=== PATIENT | male | born 1985 | race Caucasian/White ===

== ENCOUNTER 2016-02-23 23:26 | Emergency (ER) | payer OTHER ==
[~2016-02-23] VITALS: Ht 172.7 cm; Wt 78.0 kg
[~2016-02-23 23:26] MED LIST: ALPR0.5T PO; ALPR0.5T3; BSP5T PO; HYDR-1231 PO; HYDR-3720 PO; HYDR-757 PO; ONDA8TAB13 PO; PNT40TEC PO; PREDNISON; SULF-222 PO; THYROID MED
[2016-02-23] MEDS ORDERED: NAPR500T3 (23:44)
[2016-02-23] MEDS ORDERED: HYDR-3812 (23:44)
[2016-02-23] MEDS ORDERED: LISD40CA3 (23:44)
[2016-02-23] MEDS ORDERED: LEVO88TA54 (23:44)
[2016-02-24] MEDS ORDERED: fentaNYL INJECTION 100 MCG/2 ML AMP IVP PRN
[2016-02-24] MEDS ORDERED: LIDOCAINE/EPI 1%-1:100,000 (XYLOCAINE) 20ML INJ ONE
[2016-02-24 00:13] LABS: BASOPHILS # (AUTO) 0.1 10^3/uL (0.0-0.1); BASOPHILS % (AUTO) 1 % (0-10); EOSINOPHILS # (AUTO) 0.6 10^3/uL (0.0-0.3); EOSINOPHILS % (AUTO) 5 % (0-10); LYMPHOCYTES # (AUTO) 3.1 X 10^3 (1.0-4.0); LYMPHOCYTES % (AUTO) 27 % (12-44); MEAN CORPUSCULAR HEMOGLOBIN 33 PG (25-34); MEAN CORPUSCULAR HGB CONC 34 G/DL (32-36); MEAN CORPUSCULAR VOLUME 97 FL (80-99); MEAN PLATELET VOLUME 10.6 FL (7.4-10.4); MONOCYTES # (AUTO) 0.9 X 10^3 (0.0-1.0); MONOCYTES % (AUTO) 8 % (0-12); NEUTROPHILS # (AUTO) 6.7 X 10^3 (1.8-7.8); NEUTROPHILS % (AUTO) 59 % (42-75); PLATELET COUNT 345 10^3/uL (130-400); RED BLOOD COUNT 4.06 10^6/uL (4.35-5.85); RED CELL DISTRIBUTION WIDTH 12.4 % (10.0-14.5); WHITE BLOOD COUNT 11.3 10^3/uL (4.3-11.0)
[2016-02-24 00:17] LABS: PROTHROMBIN TIME PATIENT 12.8 SEC (12.2-14.7)
[2016-02-24 00:30] LABS: ALANINE AMINOTRANSFERASE 127 U/L (0-55); ALBUMIN 4.3 G/DL (3.2-4.5); ALCOHOL 245 MG/DL (<10); ANION GAP 11 MMOL/L (5-14); ASPARTATE AMINO TRANSFERASE 70 U/L (5-34); BILIRUBIN,TOTAL 0.4 MG/DL (0.1-1.0); BLOOD UREA NITROGEN 8 MG/DL (7-18); BUN/CREATININE RATIO 7; CARBON DIOXIDE 24 MMOL/L (21-32); CHLORIDE 105 MMOL/L (98-107); CREATININE SERUM 1.11 MG/DL (0.60-1.30); GFR ESTIMATED > 60; GLUCOSE 113 MG/DL (70-105); POTASSIUM 4.4 MMOL/L (3.6-5.0); SODIUM 140 MMOL/L (135-145); TOTAL PROTEIN 7.5 G/DL (6.4-8.2)
[2016-02-24] MEDS: TETANUS,DIPTH,PERTUSS P/F (BOOSTRIX) 0.5 ML VIAL IM ONE ×2 (00:33→00:37)
[2016-02-24] MEDS ORDERED: ceFAZolin 2 GM IV (SDC ONLY) 50 ML IV ONE (00:45)
[2016-02-24] MEDS ORDERED: TRIM/SULFAMETH 160/800 (SEPTRA DS) TAB PO ONE (00:45)
[2016-02-24] MEDS ORDERED: RX-TRAMADOL 50 MG (ULTRAM) TAB PPK#4 PO STA (01:19)
--- NOTE | 2016-02-24 01:30 | ED Fall/Injury ---
General Chief Complaint: Laceration Stated Complaint: R LEG AND R HAND INJ Nursing Triage Note: c/o R hand laceration after falling on glass bird feeder Source: patient, family Exam Limitations: intoxication (JOSE ALEJANDRO PETERSEN MD) History of Present Illness Time seen by provider: 23:35 Initial Comments Patient reports having a fall in which she grabbed onto a bird feeder with glass pains that broke and lacerated his right hand on the palmar surface. Patient has chronic right knee pain which he exacerbated with the fall. He reports he is scheduled to have surgery on the right knee in the near future. He also complains of right ankle pain. The laceration on the right palm is fairly deep and has arterial bleeding. Pressure is required to control the bleeding. Patient is not certain of last tetanus immunization. Patient denies any head or neck injury. No loss of consciousness. He is alert and oriented but intoxicated. (JOSE ALEJANDRO PETERSEN MD) Allergies and Home Medications Allergies Coded Allergies: No Known Drug Allergies (Unverified , 01/31/11) Home Medications Hydrocodone/Acetaminophen 1 Each Tablet #75 (Reported) Levothyroxine Sodium 88 Mcg Tablet #30 (Reported) Lisdexamfetamine Dimesylate 40 Mg Capsule #30 (Reported) Naproxen 500 Mg Tablet #60 (Reported) Sulfamethoxazole/Trimethoprim 1 Each Tablet #14 1 EACH PO BID Prescribed by: JOSE ALEJANDRO HERNANDEZ on 02/24/16 0133 Constitutional: see HPI Eyes: No Symptoms Reported Ears, Nose, Mouth, Throat: no symptoms reported Respiratory: no symptoms reported Cardiovascular: no symptoms reported Gastrointestinal: no symptoms reported Genitourinary: no symptoms reported Musculoskeletal: see HPI Skin: see HPI Psychiatric/Neurological: See HPI (JOSE ALEJANDRO PETERSEN MD) Past Nmaqngq-Iemjoe-Ryvbwz Hx Patient Social History Alcohol Use: Occasionally Uses Recreational Drug Use: No (ALCOHOL, NO RECENT HX OF DRUG ABUSE) Smoking Status: Current Everyday Smoker Type Used: Cigarettes Recent Foreign Travel: No Contact w/Someone Who Travel: No Recent Infectious Disease Expo: No Recent Hopitalizations: No Physical Abuse Screen: No Sexual Abuse: No (JOSE ALEJANDRO PETERSEN MD) Seasonal Allergies Seasonal Allergies: No (JOSE ALEJANDRO PETERSEN MD) Surgeries HX Surgeries: No (JOSE ALEJANDRO PETERSEN MD) Respiratory Hx Respiratory Disorders: No (JOSE ALEJANDRO PETERSEN MD) Cardiovascular Hx Cardiac Disorders: No (JOSE ALEJANDRO PETERSEN MD) Neurological Hx Neurological Disorders: No (JOSE ALEJANDRO PETERSEN MD) Reproductive System Hx Reproductive Disorders: No (JOSE ALEJANDRO PETERSEN MD) Genitourinary Hx Genitourinary Disorders: No (JOSE ALEJANDRO PETERSEN MD) Gastrointestinal Hx Gastrointestinal Disorders: No (JOSE ALEJANDRO PETERSEN MD) Musculoskeletal Hx Musculoskeletal Disorders: Yes (chronic knee pain from injury 2 yrs ago) (JSOE ALEJANDRO PETERSEN MD) Endocrine Hx Endocrine Disorders: Yes Endocrine Disorders: Hypothyroidsim (JOSE ALEJANDRO PETERSEN MD) HEENT HX ENT Disorders: No (JOSE ALEJANDRO PETERSEN MD) Cancer Hx Cancer: No (JOSE ALEJANDRO PETERSEN MD) Psychosocial Hx Psychiatric Problems: Yes Behavioral Health Disorders: Anxiety (JOSE ALEJANDRO PETERSEN MD) Integumentary HX Skin/Integumentary Disorder: No (JOSE ALEJANDRO PETERSEN MD) Blood Transfusions Hx Blood Disorders: No (JOSE ALEJANDRO PETERSEN MD) Family Medical History Significant Family History: No Pertinent Family Hx (JOSE ALEJANDRO PETERSEN MD) Physical Exam Vital Signs Vital Sign - Last 12Hours 02/23/16 02/24/16 23:34 01:39 Temp 98.2 Pulse 84 Resp 18 B/P 157/104 Pulse Ox 89 O2 Delivery Room Air (DORA ROMERO) Vital Signs Capillary Refill : Less Than 3 Seconds (JOSE ALEJANDRO PETERSEN MD) General Appearance: WD/WN no apparent distress HEENT: PERRL/EOMI normal ENT inspection Neck: normal inspection Cardiovascular: regular rate, rhythm no edema no murmur Respiratory: lungs clear normal breath sounds no respiratory distress no accessory muscle use Gastrointestinal: non tender soft Back: normal inspection Extremities: other (3 cm flap laceration to the right palm. 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 no motor/sensory deficits alert normal mood/affect oriented x 3 other Skin: normal color (intoxicated) warm/dry other (see above) (JOSE ALEJANDRO PETERSEN MD) Jean-Claude Coma Score Best Eye Response: (4) Open Spontaneously Best Verbal Response: (5) Oriented Best Motor Response: (6) Obeys Commands [place] Total: 15 (JOSE ALEJANDRO PETERSEN MD) Laceration Repair : Wound Location: Upper Extremities (rt hand) Wound Length (cm): 3 Wound's Depth, Shape: flap, sub Q Wound Explored: contaminated Irrigated w/ Saline (ccs): 500 Betadine Prep?: No Anesthesia: Lidocaine w/ Epi Volume Anesthetic (ccs): 3 Suture: Ethlion (3-0 ethilon used to reapproximate skin edges.), Vicryl (3- 0 vicryl used to obtain hemostasis.) Number of Sutures: 4 Layer Closure?: 1 Number Deep Layer Sutures: 1 Sterile Dressing Applied?: Yes Progress compression held on the wound and surgicel placed in the bed of the wound to assist with obtaining hemostasis. blood loss 50 cc. Patient tolerated the procedure well. (DORA ROMERO) Progress/Results/Core Measures Results/Orders Lab Results Laboratory Tests Test 02/23/16 23:55 Range/Units Activated Partial Thromboplast Time 32 24-35 SEC Alanine Aminotransferase (ALT/SGPT) 127 H 0-55 U/L Albumin 4.3 3.2-4.5 G/DL Alkaline Phosphatase 65 40-136 U/L Anion Gap 11 5-14 MMOL/L Aspartate Amino Transf (AST/SGOT) 70 H 5-34 U/L BUN/Creatinine Ratio 7 Basophils # (Auto) 0.1 0.0-0.1 10^3/uL Basophils (%) (Auto) 1 0-10 % Blood Urea Nitrogen 8 7-18 MG/DL Calcium Level 9.0 8.5-10.1 MG/DL Carbon Dioxide Level 24 21-32 MMOL/L Chloride Level 105 98-107 MMOL/L Creatinine 1.11 0.60-1.30 MG/DL Eosinophils # (Auto) 0.6 H 0.0-0.3 10^3/uL Eosinophils (%) (Auto) 5 0-10 % Estimat Glomerular Filtration Rate > 60 Glucose Level 113 H 70-105 MG/DL Hematocrit 39 L 40-54 % Hemoglobin 13.3 13.3-17.7 G/DL INR Comment 1.0 0.8-1.4 Lymphocytes # (Auto) 3.1 1.0-4.0 X 10^3 Lymphocytes (%) (Auto) 27 12-44 % Mean Corpuscular Hemoglobin 33 25-34 PG Mean Corpuscular Hemoglobin Concent 34 32-36 G/DL Mean Corpuscular Volume 97 80-99 FL Mean Platelet Volume 10.6 H 7.4-10.4 FL Monocytes # (Auto) 0.9 0.0-1.0 X 10^3 Monocytes (%) (Auto) 8 0-12 % Neutrophils # (Auto) 6.7 1.8-7.8 X 10^3 Neutrophils (%) (Auto) 59 42-75 % Platelet Count 345 130-400 10^3/uL Potassium Level 4.4 3.6-5.0 MMOL/L Prothrombin Time 12.8 12.2-14.7 SEC Red Blood Count 4.06 L 4.35-5.85 10^6/uL Red Cell Distribution Width 12.4 10.0-14.5 % Serum Alcohol 245 H <10 MG/DL Sodium Level 140 135-145 MMOL/L Total Bilirubin 0.4 0.1-1.0 MG/DL Total Protein 7.5 6.4-8.2 G/DL White Blood Count 11.3 H 4.3-11.0 10^3/uL (DORA ROMERO) My Orders Orders-DORA ROMERO Lidocaine/Epi 1% 1:100,000 (Xylocaine /E (02/24/16 00:00) (DORA ROMERO) Medications Given in ED Current Medications Medications Dose Ordered Sig/José Route Start Time Stop Time Status Last Admin Dose Admin Cefazolin Sodium/ Dextrose 50 ml @ 100 mls/hr ONCE ONCE IV 02/24/16 00:45 02/24/16 01:14 DC 02/24/16 01:00 100 MLS/HR Diphtheria/ Tetanus/Acell Pertussis 0.5 ml 0.5 ml ONCE ONCE IM 02/24/16 00:15 02/24/16 00:16 DC 02/24/16 00:37 0.5 ML Fentanyl Citrate 50 mcg ONCE PRN IVP 02/24/16 00:00 02/24/16 01:40 DC 02/23/16 23:58 50 MCG Lidocaine/ Epinephrine 20 ml ONCE ONCE INJ 02/24/16 00:00 02/24/16 00:01 DC 02/23/16 23:58 7 ML Trimethoprim/ Sulfamethoxazole 1 ea ONCE ONCE PO 02/24/16 00:45 02/24/16 00:46 DC 02/24/16 01:00 1 EA (DORA ROMERO) Vital Signs/I&O Vital Sign - Last 12Hours 02/23/16 02/24/16 23:34 01:39 Temp 98.2 98.2 Pulse 84 Resp 18 B/P 157/104 Pulse Ox 89 98 O2 Delivery Room Air (DORA ROMERO) Blood Pressure Mean: 121 Progress Note : Progress Note Patient was given fentanyl for pain. Boostrix tetanus booster was administered. Repair of the flap laceration was performed by Dora Romero with my assistance. We had difficulty controlling the bleeding. One internal suture was required to control bleeding. Patient was anesthetized with lidocaine with epinephrine and a pressure dressing applied. Bleeding eventually did stop and wound was repaired by Dora Romero. Because of the depth and extensiveness of wound, Ancef was administered for infection prophylaxis. This was followed by Bactrim for MRSA prophylaxis. A take-home packet of tramadol was provided for pain control. (JOSE ALEJANDRO PETERSEN MD) Diagnostic Imaging Diagonstic Imaging: Xray Plain Films/CT/US/NM/MRI: ankle Comments X-rays of the right ankle viewed by me. Report not yet available. No acute abnormalities appreciated. Diagonstic Imaging: Xray Plain Films/CT/US/NM/MRI: knee Comments X-rays of the right knee viewed by me. Report not available. No acute abnormalities appreciated. Diagonstic Imaging: Xray Plain Films/CT/US/NM/MRI: hand Comments X-rays of the right hand viewed by me. Report not yet available. No acute bony injuries or foreign bodies appreciated. (JOSE ALEJANDRO PETERSEN MD) Departure Impression Impression: Primary Impression: Laceration of hand, right, complicated Qualified Code: S61.411A - Laceration without foreign body of right hand, initial encounter Additional Impressions: exacerbation of chronic pain Alcohol intoxication Qualified Code: F10.129 - Alcohol abuse with intoxication, unspecified Disposition: 01 HOME, SELF-CARE Condition: Improved Departure-Patient Inst. Decision time for Depature: 01:00 (JOSE ALEJANDRO PETERSEN MD) Referrals: [facility] (PCP/Family) Primary Care Physician Patient Instructions: Laceration Repair With Stitches (DC) Add. Discharge Instructions: Return to care if you have worsening symptoms or you develop signs of infection such as increasing redness, puslike drainage, fever, etc. Leave the dressing in place for 48 hours. Then you may change the dressing out with clean gauze. Have your sutures removed in 8-10 days. Keep the wound clean and dry. After the current dressing is removed in 48 hours, you may wash your hands and shower as usual but avoid submerging until sutures are removed. Take care to avoid disrupting the sutures. Please avoid drinking alcohol in the future as this will make your walking unsteady given your history of chronic knee problems. Alcohol cessation is important for preventing further injury. Follow-up with your primary care provider early next week. You may take the Ultram dispensed in the emergency room every 6 hours as needed for pain. You may add Tylenol up to 1000 mg every 6 hours as needed for additional pain relief. After 24 hours, you may add ibuprofen up to 800 mg every 8 hours as needed. Complete your antibiotics as prescribed. All discharge instructions reviewed with patient and/or family. Voiced understanding. Scripts Sulfamethoxazole/Trimethoprim (Bactrim Ds Tablet)1 Each Tablet1 Each PO BID #14 TAB Prov:JOSE ALEJANDRO PETERSEN MD 02/24/16 JOSE ALEJANDRO PETERSEN MD Feb 24, 2016 01:30 DORA ROMERO Feb 24, 2016 01:46
[2016-02-24] MEDS ORDERED: SULF1TAB35 PO (01:33)
[2016-02-24 01:39] VITALS: BP 148/98
--- NOTE | 2016-02-24 06:59 | Diagnostic Imaging Report ---
Clinical indication: Patient complains of pain to right knee and ankle after falling into glass birdfeeder. Exam: X-ray of the right ankle, 3 views. Comparison: X-ray of the right foot dated 09/01/2014. Findings: There is no evidence of acute fracture or dislocation. There is no significant bone or joint abnormality. Ankle mortise and syndesmotic joints unremarkable. Impression: Unremarkable x-ray of the right ankle. Dictated by: Dictated on workstation # [id number]
--- NOTE | 2016-02-24 07:35 | Diagnostic Imaging Report ---
CLINICAL INDICATION: Patient fell into glass bird feeder, laceration anterior side of the right hand and knee. EXAM: X-ray of the right knee, 3 views. COMPARISON: X-ray of the right knee dated 09/01/2014. FINDINGS: There is no evidence of acute fracture or dislocation. There is soft tissue swelling involving the anterior aspect of the knee. Stable appearing bony deformity of the upper fibular diaphysis which may be related to old healed fracture changes. IMPRESSION: There is no evidence of acute fracture or dislocation. There is soft tissue swelling anterior to the right knee. Dictated by: Dictated on workstation # [id number]
--- NOTE | 2016-02-24 07:49 | Diagnostic Imaging Report ---
Clinical indication: Patient fell in a Glass bird feeder. Patient has laceration to anterior side of the right hand. Exam: X-ray of the right hand, 3 views. Comparison: None. Findings: There is no acute fracture or dislocation. There is slight flexion in position of the fifth digit noted. There is no evidence of radiodense foreign objects seen on this exam. There is no significant abnormality seen. Dressing is seen overlying the right hand. Impression: There is slight flexion position of the fifth digit noted. Otherwise, unremarkable x-ray of the right hand with no evidence of radiodense foreign object. Dictated by: Dictated on workstation # [id number]
== END 2016-02-24 01:40 | disposition home or self-care (01) ==
LOC: EDUNIT# 23:26 → ER 23:30
DX: S61.421A Laceration with foreign body of right hand, initial encounter (principal); Z23 Encounter for immunization; F10.129 Alcohol abuse with intoxication, unspecified; Y90.8 Blood alcohol level of 240 mg/100 ml or more; M25.561 Pain in right knee; G89.29 Other chronic pain; F17.210 Nicotine dependence, cigarettes, uncomplicated; W18.02XA Striking against glass with subsequent fall, initial encounter; Y99.8 Other external cause status
CPT/HCPCS: 12042; 36415; 73130; 73562; 73610; 80053; 80320; 85025; 85610; 85730; 90471; 90715; 96365; 96375

== ENCOUNTER 2016-05-21 17:30 | Emergency (ER) | payer OTHER ==
[~2016-05-21] VITALS: Ht 175.3 cm; Wt 88.0 kg
[~2016-05-21 17:30] MED LIST changes: +HYDR-3812; +LEVO88TA54; +LISD40CA3; +NAPR500T3; +SULF1TAB35 PO
[2016-05-21] MEDS ORDERED: FAMOTIDINE 20MG/2ML IV (PEPCID) IVP ONE (18:15)
--- NOTE | 2016-05-21 18:30 | ED GI ---
General Chief Complaint: Abdominal/GI Problems Stated Complaint: COUGHING UP BLOOD/ETOH Nursing Triage Note: PT BROUGHT IN BY [facility] WITH C/O VOMITING BLOOD. 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 HE REPORTS THIS HAS BEEN INTERMITTANT X 3 MONTHS WITH WORSENING OVER THE LAST SEVERAL DAYS. Sepsis Screen: No Definite Risk Source of Information: Patient Exam Limitations: No Limitations History of Present Illness Time Seen By Provider: 18:30 Initial Comments 30-year-old male patient presents to the emergency department by [facility] with complaints of vomiting blood. Patient was reportedly arrested by MARY just prior to her arrival. Patient reportedly began complaining of severe epigastric and right upper quadrant pain with associated hematemesis after being arrested. Patient reports to this examiner that he "chronically vomits blood". Reports his father this year from esophageal varices. Patient reports drinking half a mix or drink and one can of beer 5 hours ago. Patient smells heavily of alcohol. Patient has been seen for similar complaints previously (dating back to 2008) with recommendations for upper endoscopy. Patient has not followed through with upper endoscopy. Timing/Duration: 1/2 Hour, Intermittent Severity/Quality: Cramping, Sharp, Stabbing Location: Epigastric Radiation: RUQ Activities at Onset: Other (occurred after being arrested. ) Modifying Factors: Worsens With Eating, Worsens With Palpation Allergies and Home Medications Allergies Coded Allergies: No Known Drug Allergies (Unverified , 01/31/11) Home Medications Hydrocodone/Acetaminophen 1 Each Tablet, #75 (Reported) Levothyroxine Sodium 88 Mcg Tablet, #30 (Reported) Lisdexamfetamine Dimesylate 40 Mg Capsule, #30 (Reported) Naproxen 500 Mg Tablet, #60 (Reported) Omeprazole 40 Mg Capsule.dr, 40 MG PO BID, #30 Ref 0 Prescribed by: DORA ROMERO on 05/21/161952 Sucralfate 1 Gm Tablet, 1 GM PO ACHS, #56 Ref 0 Prescribed by: DORA ROMERO on 05/21/161952 Sulfamethoxazole/Trimethoprim 1 Each Tablet, 1 EACH PO BID, #14 Prescribed by: JOSE ALEJANDRO CAMARENA on 02/24/16 0133 Review of Systems Constitutional: No dizziness, No fever, No malaise, No weakness Respiratory: Denies Cough, Denies Shortness of Air Cardiovascular: Denies Chest Pain, Denies Lightheadedness, Denies Syncope Gastrointestinal: See HPI, Denies Abdomen Distended, Abdominal Pain, Denies Blood Streaked Stools, Denies Constipated, Denies Diarrhea, Denies Difficulty Swallowing, Nausea, Denies Poor Appetite, Denies Poor Fluid Intake, Denies Rectal Bleeding, Vomiting, Other (hematemesis) Genitourinary: No Symptoms Reported Musculoskeletal: no symptoms reported Skin: no symptoms reported Psychiatric/Neurological: No Symptoms Reported All Other Systems Reviewed Negative Unless Noted: Yes (Negative excepted noted.) Past Zrdzuuh-Nrrxpi-Njswyv Hx Patient Social History Alcohol Use: Regular Use Recreational Drug Use: Yes (ALCOHOL, NO RECENT HX OF DRUG ABUSE) Smoking Status: Current Everyday Smoker Type Used: Cigarettes 2nd Hand Smoke Exposure: No Recent Foreign Travel: No Contact w/Someone Who Travel: No Recent Infectious Disease Expo: No Recent Hopitalizations: No Seasonal Allergies Seasonal Allergies: No Surgeries HX Surgeries: No Respiratory Hx Respiratory Disorders: No Cardiovascular Hx Cardiac Disorders: No Neurological Hx Neurological Disorders: No Reproductive System Hx Reproductive Disorders: No Genitourinary Hx Genitourinary Disorders: No Gastrointestinal Hx Gastrointestinal Disorders: Yes (history of alcohol gastritis) Musculoskeletal Hx Musculoskeletal Disorders: Yes (chronic knee pain from injury 2 yrs ago) Endocrine Hx Endocrine Disorders: Yes Endocrine Disorders: Hypothyroidsim HEENT HX ENT Disorders: No Cancer Hx Cancer: No Psychosocial Hx Psychiatric Problems: Yes Behavioral Health Disorders: Anxiety Integumentary HX Skin/Integumentary Disorder: No Blood Transfusions Hx Blood Disorders: No Reviewed Nursing Assessment Reviewed/Agree w Nursing PMH: Yes Family Medical History Significant Family History: No Pertinent Family Hx Physical Exam Vital Signs VS - Last 72 Hours, by Label 05/21/16 05/21/16 17:30 20:06 Temp 98.6 98.6 Pulse 121 120 Resp 20 20 B/P (MAP) 130/78 Pulse Ox 97 97 O2 Delivery Room Air Capillary Refill : Less Than 3 Seconds General Appearance: WD/WN, no apparent distress HEENT: PERRL/EOMI, pharynx normal, other (conjunctiva injected bilaterally, pupils dilated.) Neck: supple, normal inspection Respiratory: lungs clear, normal breath sounds, no respiratory distress Cardiovascular: normal peripheral pulses, no edema, no murmur, tachycardia Peripheral Pulses: 2+ Dorsalis Pedis (R), 2+ Left Dors-Pedis (L), 2+ Radial Pulses (R), 2+ Radial Pulses (L) Gastrointestinal: normal bowel sounds, soft, no organomegaly, No distended, guarding (generalized guarding. Exaggerated pain response noted with very light palpation. Patient repeatedly hits this examiner's hands away, but then is noted to palpate the abdomen harder then this examiner without grimacing or pain response.), No rebound, tenderness (generalized guarding. Exaggerated pain response noted with very light palpation. Patient repeatedly hits this examiner's hands away, but then is noted to palpate the abdomen harder then this examiner without grimacing or pain response.) Extremities: no pedal edema, normal capillary refill Back: normal inspection, no CVA tenderness Neurologic/Psychiatric: alert, normal mood/affect, oriented x 3 Skin: normal color, warm/dry Progress/Results/Core Measures Results/Orders Lab Results Laboratory Tests Test 05/21/16 18:30 05/21/16 19:10 Range/Units White Blood Count 9.8 4.3-11.0 10^3/uL Red Blood Count 4.64 4.35-5.85 10^6/uL Hemoglobin 15.2 13.3-17.7 G/DL Hematocrit 43 40-54 % Mean Corpuscular Volume 93 80-99 FL Mean Corpuscular Hemoglobin 33 25-34 PG Mean Corpuscular Hemoglobin Concent 35 32-36 G/DL Red Cell Distribution Width 13.6 10.0-14.5 % Platelet Count 233 130-400 10^3/uL Mean Platelet Volume 11.0 H 7.4-10.4 FL Neutrophils (%) (Auto) 41 L 42-75 % Lymphocytes (%) (Auto) 44 12-44 % Monocytes (%) (Auto) 10 0-12 % Eosinophils (%) (Auto) 4 0-10 % Basophils (%) (Auto) 1 0-10 % Neutrophils # (Auto) 4.0 1.8-7.8 X 10^3 Lymphocytes # (Auto) 4.3 H 1.0-4.0 X 10^3 Monocytes # (Auto) 1.0 0.0-1.0 X 10^3 Eosinophils # (Auto) 0.4 H 0.0-0.3 10^3/uL Basophils # (Auto) 0.1 0.0-0.1 10^3/uL Prothrombin Time 13.8 12.2-14.7 SEC INR Comment 1.1 0.8-1.4 Activated Partial Thromboplast Time 27 24-35 SEC Sodium Level 145 135-145 MMOL/L Potassium Level 4.3 3.6-5.0 MMOL/L Chloride Level 111 H 98-107 MMOL/L Carbon Dioxide Level 21 21-32 MMOL/L Anion Gap 13 5-14 MMOL/L Blood Urea Nitrogen 8 7-18 MG/DL Creatinine 0.96 0.60-1.30 MG/DL Estimat Glomerular Filtration Rate > 60 BUN/Creatinine Ratio 8 Glucose Level 133 H 70-105 MG/DL Calcium Level 8.8 8.5-10.1 MG/DL Total Bilirubin 0.5 0.1-1.0 MG/DL Aspartate Amino Transf (AST/SGOT) 75 H 5-34 U/L Alanine Aminotransferase (ALT/SGPT) 93 H 0-55 U/L Alkaline Phosphatase 45 40-136 U/L Total Protein 6.8 6.4-8.2 G/DL Albumin 4.2 3.2-4.5 G/DL Lipase 47 8-78 U/L Serum Alcohol 271 H <10 MG/DL Urine Opiates Screen POSITIVE H NEGATIVE Urine Oxycodone Screen NEGATIVE NEGATIVE Urine Methadone Screen NEGATIVE NEGATIVE Urine Propoxyphene Screen NEGATIVE NEGATIVE Urine Barbiturates Screen NEGATIVE NEGATIVE Ur Tricyclic Antidepressants Screen NEGATIVE NEGATIVE Urine Phencyclidine Screen NEGATIVE NEGATIVE Urine Amphetamines Screen NEGATIVE NEGATIVE Urine Methamphetamines Screen NEGATIVE NEGATIVE Urine Benzodiazepines Screen POSITIVE H NEGATIVE Urine Cocaine Screen NEGATIVE NEGATIVE Urine Cannabinoids Screen NEGATIVE NEGATIVE My Orders Orders - DORA ROMERO PA Alcohol (05/21/16 18:36) Drug Screen Stat (Urine) (05/21/16 18:36) Lipase (05/21/16 18:36) Ct Abdomen/Pelvis W (05/21/16 18:36) Iohexol Injection (Omnipaque 350 Mg/Ml 1 (05/21/16 18:45) Ns (Ivpb) (Sodium Chloride 0.9% Ivpb Bag (05/21/16 18:45) Ns Iv 1000 Ml (Sodium Chloride 0.9%) (05/21/16 19:03) Pantoprazole Tablet (Protonix Tablet) (05/21/16 20:15) Medications Given in ED Vital Signs/I&O Vital Sign - Last 12Hours 05/21/16 05/21/16 17:30 20:06 Temp 98.6 98.6 Pulse 121 120 Resp 20 20 B/P (MAP) 130/78 Pulse Ox 97 97 O2 Delivery Room Air Blood Pressure Mean: 95 Diagnostic Imaging Diagonstic Imaging: CT Plain Films/CT/US/NM/MRI: abdomen, pelvis Comments FINDINGS: Lungs are clear. Liver is normal. Gallbladder is present. Spleen is unremarkable. Kidneys and adrenals are normal. Pancreas is normal. There is food residue in the stomach. Small bowel is not dilated. Colon appears normal. There is no appendicitis. Urinary bladder is normal. There is no intraperitoneal free air or free fluid. IMPRESSION: Negative CT abdomen and pelvis. Dictated on workstation # [id number] Reviewed: Reviewed by Me (radiology report reviewed by me) Departure Communication Progress Notes All laboratory and diagnostic findings discussed with the patient. Patient has had no vomiting or hematemesis in the emergency department. Patient is agitated and states he wants to be scoped right now in the emergency department. I discussed with him that his hemoglobin is within the normal range and no abnormal CT findings were noted. I've also discussed with them that he has not had any hematemesis in the emergency department, therefore we' ll discharge him to home and he will follow-up with Dr. Brady as an outpatient for scheduling endoscopy. I Advised patient that the alcohol is causing the gastritis and therefore needs to follow-up with his family practitioner for discussion of alcohol detox and rehabilitation. All return precautions were discussed with the patient as described in the discharge instructions of this report. Patient voices understanding and agrees with the treatment plan. Patient case discussed with Dr. Camarena, he agrees with the plan of care. Impression Impression: Primary Impression: Alcoholic gastritis Qualified Codes: K29.20 - Alcoholic gastritis without bleeding Additional Impression: Alcohol intoxication Qualified Codes: F10.120 - Alcohol abuse with intoxication, uncomplicated Disposition: HOME, SELF-CARE Condition: Improved Departure-Patient Inst. Decision time for Depature: 19:50 Referrals: [facility] (PCP/Family) Primary Care Physician DAVID BRADY DO Patient Instructions: ALCOHOL AND SUBSTANCE ABUSE, Gastritis (DC), Ulcer and Gastritis Diet Add. Discharge Instructions: All discharge instructions reviewed with patient and/or family. Voiced understanding. Medications as instructed. Tylenol [id number] as directed for pain. [place], low-fat diet. Do not eat within 2 hours of lying down. No aspirin, ibuprofen, Aleve, spicy foods, fatty foods, carbonated beverages, caffeinated beverages. Follow-up with your primary care physician for recheck and for discussion of alcohol dependence/rehab. Call for appointment time. Follow-up with Dr. Brady as an outpatient for possible need of upper endoscopy. Call for appointment time. Return to the emergency department for worsened pain, vomiting blood, black stools, rectal bleeding, or any other concerns. Scripts Sucralfate (Carafate) 1 Gm Tablet 1 GM PO ACHS, #56 TAB 0 Refills Prov: DORA ROMERO 05/21/16 Omeprazole (Omeprazole) 40 Mg Capsule. 40 MG PO BID, #30 CAP 0 Refills Prov: DORA ROMERO 05/21/16 DORA ROMERO May 21, 2016 18:30
[2016-05-21 18:41] LABS: BASOPHILS # (AUTO) 0.1 10^3/uL (0.0-0.1); BASOPHILS % (AUTO) 1 % (0-10); EOSINOPHILS # (AUTO) 0.4 10^3/uL (0.0-0.3); EOSINOPHILS % (AUTO) 4 % (0-10); LYMPHOCYTES # (AUTO) 4.3 X 10^3 (1.0-4.0); LYMPHOCYTES % (AUTO) 44 % (12-44); MEAN CORPUSCULAR HEMOGLOBIN 33 PG (25-34); MEAN CORPUSCULAR HGB CONC 35 G/DL (32-36); MEAN CORPUSCULAR VOLUME 93 FL (80-99); MONOCYTES % (AUTO) 10 % (0-12); NEUTROPHILS % (AUTO) 41 % (42-75); PLATELET COUNT 233 10^3/uL (130-400); RED BLOOD COUNT 4.64 10^6/uL (4.35-5.85); RED CELL DISTRIBUTION WIDTH 13.6 % (10.0-14.5); WHITE BLOOD COUNT 9.8 10^3/uL (4.3-11.0)
[2016-05-21] MEDS ORDERED: NS 100 ML (IVPB) BAG IV ONE (18:45)
[2016-05-21] MEDS ORDERED: IOHEXOL 350 MG/ML 100 ML (OMNIPAQUE 350) VIAL IV ONE (18:45)
[2016-05-21 18:49] LABS: INR 1.1 (0.8-1.4); PROTHROMBIN TIME PATIENT 13.8 SEC (12.2-14.7)
[2016-05-21 19:00] LABS: ALANINE AMINOTRANSFERASE 93 U/L (0-55); ALBUMIN 4.2 G/DL (3.2-4.5); ANION GAP 13 MMOL/L (5-14); ASPARTATE AMINO TRANSFERASE 75 U/L (5-34); BILIRUBIN,TOTAL 0.5 MG/DL (0.1-1.0); BLOOD UREA NITROGEN 8 MG/DL (7-18); BUN/CREATININE RATIO 8; CALCIUM 8.8 MG/DL (8.5-10.1); CARBON DIOXIDE 21 MMOL/L (21-32); CHLORIDE 111 MMOL/L (98-107); CREATININE SERUM 0.96 MG/DL (0.60-1.30); GFR ESTIMATED > 60; GLUCOSE 133 MG/DL (70-105); POTASSIUM 4.3 MMOL/L (3.6-5.0); SODIUM 145 MMOL/L (135-145); TOTAL PROTEIN 6.8 G/DL (6.4-8.2)
[2016-05-21] MEDS ORDERED: NS IV 1000 ML 1,000 ML IV ONE (19:03)
[2016-05-21 19:11] LABS: ALCOHOL 271 MG/DL (<10); LIPASE 47 U/L (8-78)
--- NOTE | 2016-05-21 19:43 | Diagnostic Imaging Report ---
PROCEDURE: CT abdomen and pelvis with contrast. TECHNIQUE: Multiple contiguous axial images were obtained through the abdomen and pelvis after administration of intravenous contrast. INDICATION: Epigastric pain. FINDINGS: Lungs are clear. Liver is normal. Gallbladder is present. Spleen is unremarkable. Kidneys and adrenals are normal. Pancreas is normal. There is food residue in the stomach. Small bowel is not dilated. Colon appears normal. There is no appendicitis. Urinary bladder is normal. There is no intraperitoneal free air or free fluid. IMPRESSION: Negative CT abdomen and pelvis. Dictated by: Dictated on workstation # [id number]
[2016-05-21] MEDS ORDERED: SUCR1TAB36 PO (19:53)
[2016-05-21] MEDS ORDERED: OMEP40CA36 PO (19:53)
[2016-05-21 20:06] VITALS: BP 144/102
[2016-05-21] MEDS ORDERED: PANTOPRAZOLE 40 MG (PROTONIX) TAB PO ONE (20:15)
--- OUTSIDE RECORDS SUMMARY | 2016-06-21 22:32 | XMS REPORT ---
Author ASHLEY Ojeda Organization [employer] Address Unknown Phone Unavailable Care Team Providers Care Link Trainer Name Role Phone ASHLEY LONGO CP Unavailable Allergies No Known Allergies Problems Problem Type Condition Code Onset Dates Condition Status Problem Pain in joint, site unspecified 719.40 Active Problem Cervicalgia 723.1 Active Problem Other malaise and fatigue 780.79 Active Problem Spasm of muscle 728.85 Active Problem Other and unspecified alcohol dependence, unspecified drunkenness 303.90 Active Problem Unspecified gastritis and gastroduodenitis without mention of hemorrhage 535.50 Active Medications No Known Medications Results No Known Results Summary Purpose [employer] Submission
--- OUTSIDE RECORDS SUMMARY | 2016-06-21 22:32 | XMS REPORT ---
Author ASHLEY Ojeda Organization [employer] Address Unknown Phone Unavailable Care Team Providers Care Asbestos Abatement Technician Name Role Phone ASHLEY LONGO CP Unavailable [...]
--- OUTSIDE RECORDS SUMMARY | 2016-06-21 22:32 | XMS REPORT ---
Author Author ASHLEY LONGO [facility] Address [address] [place] [address] Care Team Providers Care Flight Engineer Manager Name Role Phone ASHLEY LONGO Unavailable PROBLEMS Type Condition ICD9-CM Code LBG20-AU Code Onset Dates Condition Status SNOMED Code Problem Other malaise and fatigue 780.79 Active 166120030 Problem Pain in joint, site unspecified 719.40 Active 88433564 Problem Unspecified gastritis and gastroduodenitis without mention of hemorrhage 535.50 Active 188055350 Problem Spasm of muscle 728.85 Active 93388891 Problem Cervicalgia 723.1 Active 21392903 Problem Other and unspecified alcohol dependence, unspecified drunkenness 303.90 Active 502181449 ALLERGIES Unknown Allergies SOCIAL HISTORY No smoking Hx information available PLAN OF CARE VITAL SIGNS MEDICATIONS Unknown Medications RESULTS No Results PROCEDURES No Known procedures IMMUNIZATIONS No Known Immunizations
--- OUTSIDE RECORDS SUMMARY | 2016-06-21 22:32 | XMS REPORT ---
Author ASHLEY Ojeda Organization [employer] Address Unknown Phone Unavailable Care Team Providers Care Accounts Payable Coordinator Name Role Phone ASHLEY LONGO CP Unavailable Allergies No Known Allergies Problems Problem Type Condition Code Onset Dates Condition Status Problem Pain in joint, site unspecified 719.40 Active Problem Cervicalgia 723.1 Active Problem Other malaise and fatigue 780.79 Active Problem Spasm of muscle 728.85 Active Assessment Hypothyroidism (acquired) E03.9 Active Problem Other and unspecified alcohol dependence, unspecified drunkenness 303.90 Active Problem Unspecified gastritis and gastroduodenitis without mention of hemorrhage 535.50 Active Medications Medication Code System Code Instructions Start Date End Date Status Dosage Levothyroxine Sodium [facility] [address]-24 88 MCG Orally Once a day Jan 02, 2015 1 tablet Results No Known Results Summary Purpose [employer] Submission
--- OUTSIDE RECORDS SUMMARY | 2016-06-21 22:32 | XMS REPORT ---
Author ASHLEY Ojeda Organization [employer] Address Unknown Phone Unavailable Care Team Providers Care Assistant Name Role Phone ASHLEY LONGO CP Unavailable Allergies No Known Allergies Problems Problem Type Condition Code Onset Dates Condition Status Problem Pain in joint, site unspecified 719.40 Active Problem Cervicalgia 723.1 Active Problem Other malaise and fatigue 780.79 Active Problem Spasm of muscle 728.85 Active Assessment Acquired hypothyroidism E03.9 Active Problem Other and unspecified alcohol dependence, unspecified drunkenness 303.90 Active Problem Unspecified gastritis and gastroduodenitis without mention of hemorrhage 535.50 Active Medications No Known Medications Results No Known Results Summary Purpose [employer] Submission
--- OUTSIDE RECORDS SUMMARY | 2016-06-21 22:32 | XMS REPORT ---
Author Author ASHLEY LONGO [facility] Address [address] [place] [address] Care Team Providers Care Supervisor Metal Fabricating Name Role Phone ASHLEY LONGO Unavailable PROBLEMS Type Condition ICD9-CM Code HTC31-NQ Code Onset Dates Condition Status SNOMED Code Problem Other malaise and fatigue 780.79 Active 996323062 Problem Pain in joint, site unspecified 719.40 Active 39729796 Problem Unspecified gastritis and gastroduodenitis without mention of hemorrhage 535.50 Active 886168340 Problem Spasm of muscle 728.85 Active 09635299 Problem Cervicalgia 723.1 Active 98383581 Problem Other and unspecified alcohol dependence, unspecified drunkenness 303.90 Active 133326253 ALLERGIES Unknown Allergies SOCIAL HISTORY No smoking Hx information available PLAN OF CARE VITAL SIGNS MEDICATIONS Medication Instructions Dosage Frequency Start Date End Date Duration Status Argillite 5-325 MG Orally every 6 hrs. 1 tablet as needed Apr, Active RESULTS No Results PROCEDURES No Known procedures IMMUNIZATIONS No Known Immunizations
--- OUTSIDE RECORDS SUMMARY | 2016-06-21 22:33 | XMS REPORT ---
Author ASHLEY Ojeda Organization [employer] Address Unknown Phone Unavailable Care Team Providers Care Warp Knitter Helper Name Role Phone ASHLEY LONGO CP Unavailable Allergies, Adverse Reactions, Alerts Substance Reaction Event Type Bee stings anaphylaxis Non Drug Allergy Problems Problem Type Condition Code Onset Dates Condition Status Assessment Acquired hypothyroidism E03.9 Active Problem Pain in joint, site unspecified 719.40 [...] Date End Date Status Dosage Levothyroxine Sodium [facility] [address]-84 75 MCG Orally Once a day Jan 02, 2015 1 tablet Xanax [facility] [address]-60 0.5 MG Orally Three times a day 1 tablet [place] [facility] [address]-42 5-325 MG Orally every 6 hrs. May 13, 2015 1 tablet as needed Naproxen [facility] [address]-85 500 MG Orally 2 times a day May 13, 2015 1 tablet as needed Procedures Procedure Coding System Code Date ASSAY THYROID STIM HORMONE CPT-4 13502 September 05, 2015 VENIPUNCT, ROUTINE* CPT-4 80016 September 05, 2015 Office Visit, Est Pt., Level 3 CPT-4 27706 September 05, 2015 Vital Signs Date/Time: September 05, 2015 Cardiac Monitoring Heart Rate 80 bpm Weight 187 lbs Height 69 in Blood Pressure Diastolic 88 mmHg Blood Pressure Systolic 138 mmHg Results No Known Results Summary Purpose [employer] Submission
--- OUTSIDE RECORDS SUMMARY | 2016-06-21 22:33 | XMS REPORT ---
Author ASHLEY Ojeda Organization [employer] Address Unknown Phone Unavailable Care Team Providers Care Train Brake Operator Name Role Phone ASHLEY LONGO CP Unavailable Allergies No Known Allergies Problems Problem Type Condition Code Onset Dates Condition Status Assessment Knee pain, right M25.561 Active Problem Other malaise and fatigue 780.79 Active Problem Pain in joint, site unspecified 719.40 Active Problem Acquired hypothyroidism E03.9 Active Problem Unspecified gastritis and gastroduodenitis without mention of hemorrhage 535.50 Active Problem Spasm of muscle 728.85 Active Problem Cervicalgia 723.1 Active Problem Other and unspecified alcohol dependence, unspecified drunkenness 303.90 Active Medications No Known Medications Results No Known Results Summary Purpose [employer] Submission
--- OUTSIDE RECORDS SUMMARY | 2016-06-21 22:33 | XMS REPORT ---
Author ASHLEY Ojeda Organization [employer] Address Unknown Phone Unavailable Care Team Providers Care Cloth Bolt Bander Name Role Phone ASHLEY LONGO CP Unavailable [...] Date End Date Status Dosage Levothyroxine Sodium [facility] [address]-77 75 MCG Orally Once a day Jan 02, 2015 1 tablet Results No Known Results Summary Purpose [employer] Submission
--- OUTSIDE RECORDS SUMMARY | 2016-06-21 22:33 | XMS REPORT ---
Author ASHLEY Ojeda Organization [employer] Address Unknown Phone Unavailable Care Team Providers Care Soil Science Professor Name Role Phone ASHLEY LONGO CP Unavailable [...] Date End Date Status Dosage Levothyroxine Sodium [facility] [address]-36 50 MCG Orally Once a day Jan 02, 2015 1 tablet Procedures Procedure Coding System Code Date Office Visit, Est Pt., Level 3 CPT-4 59963 Jan 02, 2015 Vital Signs Date/Time: Jan 02, 2015 Temperature 98.1 F Weight 188 lbs Height 69 in BMI 27.76 Index Blood Pressure Diastolic 82 mmHg Blood Pressure Systolic 128 mmHg Cardiac Monitoring Heart Rate 76 bpm Results No Known Results Summary Purpose [employer] Submission
--- OUTSIDE RECORDS SUMMARY | 2016-06-21 22:33 | XMS REPORT ---
Author ASHLEY Ojeda Organization [employer] Address Unknown Phone Unavailable Care Team Providers Care Truck Jumper Name Role Phone ASHLEY LONGO CP Unavailable [...] Instructions Start Date End Date Status Dosage [facility] [address]-01 5-325 MG Orally every 6 hrs May 13, 2015 1 tablet as needed Results No Known Results Summary Purpose [employer] Submission
--- OUTSIDE RECORDS SUMMARY | 2016-06-21 22:33 | XMS REPORT | Continuity of Care Document ---
Author Author [facility] Address Unknown Phone Unavailable Allergies Active Description Code Type Severity Reaction Onset Reported/Identified Relationship to Patient Clinical Status Yes No Known Drug Allergies [id number] Drug Allergy Unknown N/ A 01/31/2011 Medications Problems Date Dx Coded Attending Type Code Diagnosis Diagnosed By 12/14/2008 Ot 303.00 AC ALCOHOL INTOX-UNSPEC 12/14/2008 Ot 578.0 HEMATEMESIS 01/31/2011 Ot 305.01 ALCOHOL ABUSE-CONTINUOUS 01/31/2011 Ot 535.50 UNSP GASTRITIS GASTRODUODENITIS W/O ME 01/31/2011 Ot 786.30 HEMOPTYSIS, UNSPECIFIED 01/31/2011 Ot 789.09 ABDOMINAL PAIN, OTHER SPECIFIED SITE 02/02/2011 Ot 303.90 ALCOH DEP NEC/NOS-UNSPEC 03/02/2011 Ot 291.0 DELIRIUM TREMENS 03/02/2011 Ot 303.91 ALCOH DEP NEC/NOS-CONTIN 03/02/2011 Ot 305.1 TOBACCO USE DISORDER 03/02/2011 Ot 787.01 NAUSEA WITH VOMITING 03/12/2011 ASHLEY LONGO APRN 535.50 Unspecified Gastritis And Gastroduodenitis (without Hemorrhage) 03/12/2011 ASHLEY LONGO APRN 728.85 Spasm Of Muscle 03/12/2011 ASHLEY LONGO APRN 535.50 Unspecified Gastritis And Gastroduodenitis (without Hemorrhage) 03/12/2011 ASHLEY LONGO APRN 728.85 Spasm Of Muscle 05/05/2011 ASHLEY LONGO APRN 303.90 OTHER AND UNSPECIFIED ALCOHOL DEPENDENCE UNSPECIFIED DRINKING BEHAVIOR 05/05/2011 ASHLEY LONGO APRN 723.1 CERVICALGIA 05/05/2011 ASHLEY LONGO APRN 303.90 OTHER AND UNSPECIFIED ALCOHOL DEPENDENCE UNSPECIFIED DRINKING BEHAVIOR 05/05/2011 ASHLEY LONGO APRN 723.1 CERVICALGIA 06/19/2013 ASHLEY LONGO APRN 719.40 PAIN IN JOINT SITE UNSPECIFIED 06/19/2013 ASHLEY LONGO APRN 780.79 fatigue 06/19/2013 ASHLEY LONGO APRN 719.40 PAIN IN JOINT SITE UNSPECIFIED 06/19/2013 ASHLEY LONGO APRN 780.79 fatigue 06/24/2013 JULIA REID SUPERVISING CHEF Ot 305.00 ALCOHOL ABUSE-UNSPEC 06/24/2013 JULIA REID SUPERVISING CHEF Ot 724.5 BACKACHE NOS 06/24/2013 JULIA REDI SUPERVISING CHEF Ot 789.09 ABDOMINAL PAIN, OTHER SPECIFIED SITE 06/24/2013 JULIA REID SUPERVISING CHEF Ot 911.0 ABRASION TRUNK 06/24/2013 JULIA REID SUPERVISING CHEF Ot E000.8 OTHER EXTERNAL CAUSE STATUS 06/24/2013 JULIA REID SUPERVISING CHEF Ot E880.9 FALL ON STAIR/STEP NEC 09/01/2014 JULIA REID SUPERVISING CHEF Ot 719.06 JOINT EFFUSION-L/LEG 09/01/2014 JULIA REID SUPERVISING CHEF Ot 729.81 SWELLING OF LIMB 09/04/2014 DORA MORALES Ot 719.06 JOINT EFFUSION-L/LEG 09/04/2014 DORA MORALES Ot 719.46 JOINT PAIN-L/LEG 09/04/2014 DORA MORALES Ot 729.5 PAIN IN LIMB 01/23/2015 VITTAVILA COOK MESS Ot F32.9 01/23/2015 VITTKASHIFA Anitha COOK MESS Ot Z79.899 01/23/2015 DORA MORALES Ot F17.210 NICOTINE DEPENDENCE, CIGARETTES, UNCOMPL 01/23/2015 DORA MORALES Ot R10.11 RIGHT UPPER QUADRANT PAIN 01/23/2015 DORA MORALES Ot R11.2 NAUSEA WITH VOMITING, UNSPECIFIED 01/23/2015 VITT, VERA M COOK MESS Ot F32.9 01/23/2015 VITT, VERA M COOK MESS Ot Z79.899 01/24/2015 VITT, VERA M COOK MESS Ot F32.9 01/24/2015 VITT, VERA M COOK MESS Ot Z79.899 10/30/2015 VITT, VERA M COOK MESS Ot F32.9 MAJOR DEPRESSIVE DISORDER, SINGLE EPISOD 10/30/2015 VITT, VERA M COOK MESS Ot Z79.899 OTHER LONG-TERM (CURRENT) DRUG THERAPY 10/30/2015 HEATHER PULIDO DORA L Ot M25.561 PAIN IN RIGHT KNEE 10/30/2015 HEATHER PULIDODORA Mae Ot Z53.21 PROC/TRTMT NOT CRD OUT D/T PT LV BEF SEE 10/30/2015 VITTAVILA COOK MESS Ot F32.9 MAJOR DEPRESSIVE DISORDER, SINGLE EPISOD 10/30/2015 VITT, VERA M COOK MESS Ot Z79.899 OTHER LONG-TERM (CURRENT) DRUG THERAPY 10/31/2015 HEATHER PULIDODORA Mae Ot M25.561 PAIN IN RIGHT KNEE 10/31/2015 HEATHER PULIDODORA Mae Ot Z53.21 PROC/TRTMT NOT CRD OUT D/T PT LV BEF SEE 12/23/2015 VITT, KASHIFA M COOK MESS Ot F32.9 MAJOR DEPRESSIVE DISORDER, SINGLE EPISOD 12/23/2015 VITT, VERA M COOK MESS Ot Z79.899 OTHER LONG-TERM (CURRENT) DRUG THERAPY 12/24/2015 ASHLEY LONGO COOK MESS Ot M25.561 PAIN IN RIGHT KNEE 02/12/2016 VITT, KASHIFA Anitha COOK MESS Ot F32.9 MAJOR DEPRESSIVE DISORDER, SINGLE EPISOD 02/12/2016 VITT, VERA M COOK MESS Ot Z79.899 OTHER POOL HAND (CURRENT) DRUG THERAPY 02/12/2016 ASHLEY LONGO COOK MESS Ot M25.561 PAIN IN RIGHT KNEE 02/23/2016 VITT, VERA M COOK MESS Ot F32.9 MAJOR DEPRESSIVE DISORDER, SINGLE EPISOD 02/23/2016 VITT, VERA M COOK MESS Ot Z79.899 OTHER POOL HAND (CURRENT) DRUG THERAPY 02/23/2016 ASHLEY LONGO COOK MESS Ot M25.561 PAIN IN RIGHT KNEE 02/24/2016 ASHLEY LONGO COOK MESS Ot M25.561 PAIN IN RIGHT KNEE 02/24/2016 ASHLEY LONGO COOK MESS Ot M25.561 PAIN IN RIGHT KNEE 02/24/2016 VITT, VERA M COOK MESS Ot F32.9 MAJOR DEPRESSIVE DISORDER, SINGLE EPISOD 02/24/2016 VITT, VERA M COOK MESS Ot Z79.899 OTHER POOL HAND (CURRENT) DRUG THERAPY 02/24/2016 NICOLA ZULETA, JOSE ALEJANDRO Lomeli Ot F10.129 ALCOHOL ABUSE WITH INTOXICATION, UNSPECI 02/24/2016 NICOLA ZULETA, JOSE ALEJANDRO Lomeli Ot F17.210 NICOTINE DEPENDENCE, CIGARETTES, UNCOMPL 02/24/2016 JOSE ALEJANDRO PETERSEN MD Ot G89.29 OTHER CHRONIC PAIN 02/24/2016 JOSE ALEJANDRO PETERSEN MD Ot M25.561 PAIN IN RIGHT KNEE 02/24/2016 JOSE ALEJANDRO PETERSEN MD Ot S61.421A LACERATION WITH FOREIGN BODY OF RIGHT BLANDON 02/24/2016 NICOLA ZULETA, JOSE ALEJANDRO Lomeli Ot W18.02XA STRIKING AGAINST GLASS WITH SUBSEQUENT F 02/24/2016 JOSE ALEJANDRO PETERSEN MD Ot Y90.8 BLOOD ALCOHOL LEVEL OF 240 MG/100 ML OR 02/24/2016 JOSE ALEJANDRO PETERSEN MD Ot Y99.8 OTHER EXTERNAL CAUSE STATUS 02/24/2016 JOSE ALEJANDRO PETERSEN MD Ot Z23 ENCOUNTER FOR IMMUNIZATION 02/25/2016 Ot 305.01 ALCOHOL ABUSE-CONTINUOUS 02/25/2016 Ot 535.50 UNSP GASTRITIS GASTRODUODENITIS W/O ME 02/25/2016 Ot 786.30 HEMOPTYSIS, UNSPECIFIED 02/25/2016 Ot 789.09 ABDOMINAL PAIN, OTHER SPECIFIED SITE 02/25/2016 DORA MORALES Ot F17.210 NICOTINE DEPENDENCE, CIGARETTES, UNCOMPL 02/25/2016 DORA MORALES Ot R10.11 RIGHT UPPER QUADRANT PAIN 02/25/2016 DORA MORALES Ot R11.2 NAUSEA WITH VOMITING, UNSPECIFIED 02/25/2016 DORA MORALES Ot M25.561 PAIN IN RIGHT KNEE 02/25/2016 DORA MORALES Ot Z53.21 PROC/TRTMT NOT CRD OUT D/T PT LV BEF SEE 02/25/2016 ASHLEY LONGO Ot M25.561 PAIN IN RIGHT KNEE 03/06/2016 AVILA SUN Ot F32.9 MAJOR DEPRESSIVE DISORDER, SINGLE EPISOD 03/06/2016 AVILA SUN Ot Z79.899 OTHER POOL HAND (CURRENT) DRUG THERAPY 03/06/2016 ASHLEY LONGO Ot M25.561 PAIN IN RIGHT KNEE 05/21/2016 DORA MORALES Ot F10.129 ALCOHOL ABUSE WITH INTOXICATION, UNSPECI 05/21/2016 DORA MORALES Ot F17.210 NICOTINE DEPENDENCE, CIGARETTES, UNCOMPL 05/21/2016 DORA MORALES Ot K29.20 ALCOHOLIC GASTRITIS WITHOUT BLEEDING 05/21/2016 DORA MORALES Ot R10.13 EPIGASTRIC PAIN 05/21/2016 DORA MORALES Ot Y90.8 BLOOD ALCOHOL LEVEL OF 240 MG/100 ML OR 05/21/2016 DORA MORALES Ot Z79.899 OTHER POOL HAND (CURRENT) DRUG THERAPY 05/22/2016 DORA MORALES Ot F10.129 ALCOHOL ABUSE WITH INTOXICATION, UNSPECI 05/22/2016 DORA MORALES Ot F17.210 NICOTINE DEPENDENCE, CIGARETTES, UNCOMPL 05/22/2016 DORA MORALES Ot K29.20 ALCOHOLIC GASTRITIS WITHOUT BLEEDING 05/22/2016 DORA MORALES Ot R10.13 EPIGASTRIC PAIN 05/22/2016 DORA MORALES Ot Y90.8 BLOOD ALCOHOL LEVEL OF 240 MG/100 ML OR 05/22/2016 DORA MORALES Ot Z79.899 OTHER LONG-TERM (CURRENT) DRUG THERAPY 05/27/2016 DORA MORALES Ot F10.129 ALCOHOL ABUSE WITH INTOXICATION, UNSPECI 05/27/2016 DORA MORALES Ot F17.210 NICOTINE DEPENDENCE, CIGARETTES, UNCOMPL 05/27/2016 DORA MORALES Ot K29.20 ALCOHOLIC GASTRITIS WITHOUT BLEEDING 05/27/2016 DORA MORALES Ot R10.13 EPIGASTRIC PAIN 05/27/2016 DORA MORALES Ot Y90.8 BLOOD ALCOHOL LEVEL OF 240 MG/100 ML OR 05/27/2016 DORA MORALES Ot Z79.899 OTHER POOL HAND (CURRENT) DRUG THERAPY Procedures Code Description Performed By Performed On 94.62 ALCOHOL DETOXIFICATION 02/26/2011 44162 ROUTINE VENIPUNCTURE 06/22/2013 34594 TSH 06/22/2013 Results Test Result Range Complete blood count (CBC) with automated white blood cell (WBC) differential - 02/23/16 23:55 Blood leukocytes automated count (number/volume) 11.3 10*3/ uL 4.3-11.0 Blood erythrocytes automated count (number/volume) 4.06 10*6 /uL 4.35-5.85 Venous blood hemoglobin measurement (mass/volume) 13.3 g/dL 13.3-17.7 Blood hematocrit (volume fraction) 39 % 40-54 Automated erythrocyte mean corpuscular volume 97 [foz_us] 80-99 Automated erythrocyte mean corpuscular hemoglobin (mass per erythrocyte) 33 pg 25-34 Automated erythrocyte mean corpuscular hemoglobin concentration measurement ( mass/volume) 34 g/dL 32-36 Automated erythrocyte distribution width ratio 12.4 % 10.0-14.5 Automated blood platelet count (count/volume) 345 10*3/uL 130-400 Automated blood platelet mean volume measurement 10.6 [foz_ us] 7.4-10.4 Automated blood neutrophils/100 leukocytes 59 % 42-75 Automated blood lymphocytes/100 leukocytes 27 % 12-44 Blood monocytes/100 leukocytes 8 % 0-12 Automated blood eosinophils/100 leukocytes 5 % 0-10 Automated blood basophils/100 leukocytes 1 % 0-10 Blood neutrophils automated count (number/volume) 6.7 10*3 1.8-7.8 Blood lymphocytes automated count (number/volume) 3.1 10*3 1.0-4.0 Blood monocytes automated count (number/volume) 0.9 10*3 0.0-1.0 Automated eosinophil count 0.6 10*3/uL 0.0-0.3 Automated blood basophil count (count/volume) 0.1 10*3/uL 0.0-0.1 PT panel in platelet poor plasma by coagulation assay - 02/23/16 23:55 Prothrombin time (PT) in platelet poor plasma by coagulation assay 12.8 s 12.2-14.7 INR in platelet poor plasma or blood by coagulation assay 1.0 0.8-1.4 Activated partial thromboplastin time (aPTT) in platelet poor plasma bycoagulation assay - 02/23/16 23:55 Activated partial thromboplastin time (aPTT) in platelet poor plasma bycoagulation assay 32 s 24-35 Comprehensive metabolic panel - 02/23/16 23:55 Serum or plasma sodium measurement (moles/volume) 140 mmol/ L 135-145 Serum or plasma potassium measurement (moles/volume) 4.4 mmol/L 3.6-5.0 Serum or plasma chloride measurement (moles/volume) 105 mmol /L 98-107 Carbon dioxide 24 mmol/L 21-32 Serum or plasma anion gap determination (moles/volume) 11 mmol/L 5-14 Serum or plasma urea nitrogen measurement (mass/volume) 8 mg /dL 7-18 Serum or plasma creatinine measurement (mass/volume) 1.11 mg /dL 0.60-1.30 Serum or plasma urea nitrogen/creatinine mass ratio 7 NRG Serum or plasma creatinine measurement with calculation of estimated glomerular filtration rate > NRG Serum or plasma glucose measurement (mass/volume) 113 mg/dL 70-105 Serum or plasma calcium measurement (mass/volume) 9.0 mg/dL 8.5-10.1 Serum or plasma total bilirubin measurement (mass/volume) 0.4 mg/dL 0.1-1.0 Serum or plasma alkaline phosphatase measurement (enzymatic activity/volume) 65 U/L 40-136 Serum or plasma aspartate aminotransferase measurement (enzymatic activity/ volume) 70 U/L 5-34 Serum or plasma alanine aminotransferase measurement (enzymatic activity/volume ) 127 U/L 0-55 Serum or plasma protein measurement (mass/volume) 7.5 g/dL 6.4-8.2 Serum or plasma albumin measurement (mass/volume) 4.3 g/dL 3.2-4.5 Serum or plasma ethanol measurement (mass/volume) - 02/23/16 23:55 Serum or plasma ethanol measurement (mass/volume) 245 mg/dL <10 Complete blood count (CBC) with automated white blood cell (WBC) differential - 05/21/16 18:30 Blood leukocytes automated count (number/volume) 9.8 10*3/ uL 4.3-11.0 Blood erythrocytes automated count (number/volume) 4.64 10*6 /uL 4.35-5.85 Venous blood hemoglobin measurement (mass/volume) 15.2 g/dL 13.3-17.7 Blood hematocrit (volume fraction) 43 % 40-54 Automated erythrocyte mean corpuscular volume 93 [foz_us] 80-99 Automated erythrocyte mean corpuscular hemoglobin (mass per erythrocyte) 33 pg 25-34 Automated erythrocyte mean corpuscular hemoglobin concentration measurement ( mass/volume) 35 g/dL 32-36 Automated erythrocyte distribution width ratio 13.6 % 10.0-14.5 Automated blood platelet count (count/volume) 233 10*3/uL 130-400 Automated blood platelet mean volume measurement 11.0 [foz_ us] 7.4-10.4 Automated blood neutrophils/100 leukocytes 41 % 42-75 Automated blood lymphocytes/100 leukocytes 44 % 12-44 Blood monocytes/100 leukocytes 10 % 0-12 Automated blood eosinophils/100 leukocytes 4 % 0-10 Automated blood basophils/100 leukocytes 1 % 0-10 Blood neutrophils automated count (number/volume) 4.0 10*3 1.8-7.8 Blood lymphocytes automated count (number/volume) 4.3 10*3 1.0-4.0 Blood monocytes automated count (number/volume) 1.0 10*3 0.0-1.0 Automated eosinophil count 0.4 10*3/uL 0.0-0.3 Automated blood basophil count (count/volume) 0.1 10*3/uL 0.0-0.1 PT panel in platelet poor plasma by coagulation assay - 05/21/16 18:30 Prothrombin time (PT) in platelet poor plasma by coagulation assay 13.8 s 12.2-14.7 INR in platelet poor plasma or blood by coagulation assay 1.1 0.8-1.4 Activated partial thromboplastin time (aPTT) in platelet poor plasma bycoagulation assay - 05/21/16 18:30 Activated partial thromboplastin time (aPTT) in platelet poor plasma bycoagulation assay 27 s 24-35 Comprehensive metabolic panel - 05/21/16 18:30 Serum or plasma sodium measurement (moles/volume) 145 mmol/ L 135-145 Serum or plasma potassium measurement (moles/volume) 4.3 mmol/L 3.6-5.0 Serum or plasma chloride measurement (moles/volume) 111 mmol /L 98-107 Carbon dioxide 21 mmol/L 21-32 Serum or plasma anion gap determination (moles/volume) 13 mmol/L 5-14 Serum or plasma urea nitrogen measurement (mass/volume) 8 mg /dL 7-18 Serum or plasma creatinine measurement (mass/volume) 0.96 mg /dL 0.60-1.30 Serum or plasma urea nitrogen/creatinine mass ratio 8 NRG Serum or plasma creatinine measurement with calculation of estimated glomerular filtration rate > NRG Serum or plasma glucose measurement (mass/volume) 133 mg/dL 70-105 Serum or plasma calcium measurement (mass/volume) 8.8 mg/dL 8.5-10.1 Serum or plasma total bilirubin measurement (mass/volume) 0.5 mg/dL 0.1-1.0 Serum or plasma alkaline phosphatase measurement (enzymatic activity/volume) 45 U/L 40-136 Serum or plasma aspartate aminotransferase measurement (enzymatic activity/ volume) 75 U/L 5-34 Serum or plasma alanine aminotransferase measurement (enzymatic activity/volume ) 93 U/L 0-55 Serum or plasma protein measurement (mass/volume) 6.8 g/dL 6.4-8.2 Serum or plasma albumin measurement (mass/volume) 4.2 g/dL 3.2-4.5 Lipase - 05/21/16 18:30 Lipase 47 U/L 8-78 Serum or plasma ethanol measurement (mass/volume) - 05/21/16 18:30 Serum or plasma ethanol measurement (mass/volume) 271 mg/dL <10 Urine drug screening test - 05/21/16 19:10 Urine phencyclidine detection by screening method NEGATIVE NEGATIVE Urine benzodiazepines detection by screening method POSITIVE NEGATIVE Urine cocaine detection NEGATIVE NEGATIVE Urine amphetamines detection by screening method NEGATIVE NEGATIVE Urine methamphetamine detection by screening method NEGATIVE NEGATIVE Urine cannabinoids detection by screening method NEGATIVE NEGATIVE Urine opiates detection by screening method POSITIVE NEGATIVE Urine barbiturates detection NEGATIVE NEGATIVE Screening urine tricyclic antidepressants detection NEGATIVE NEGATIVE Urine methadone detection by screening method NEGATIVE NEGATIVE Urine oxycodone detection NEGATIVE NEGATIVE Urine propoxyphene detection NEGATIVE NEGATIVE Encounters ACCT No. Visit Date/Time Discharge Status Pt. Type Provider Facility Loc./Unit Complaint [id number] 06/22/2013 15:51:00 06/22/2013 23: 59:59 [facility] Outpatient ASHLEY LONGO APRN [id number] 06/19/2013 16:00:00 06/19/2013 23: 59:59 [facility] Outpatient ASHLEY LONGO APRN
--- OUTSIDE RECORDS SUMMARY | 2016-06-21 22:33 | XMS REPORT ---
Author ASHLEY Ojeda Organization [employer] Address Unknown Phone Unavailable Care Team Providers Care Ladle Car Operator Name Role Phone ASHLEY LONGO CP Unavailable Allergies No Known Allergies Problems Problem Type Condition Code Onset Dates Condition Status Problem Other malaise and fatigue 780.79 Active [...]
--- OUTSIDE RECORDS SUMMARY | 2016-06-21 22:34 | XMS REPORT ---
Author ASHLEY Ojeda Organization [employer] Address Unknown Phone Unavailable Care Team Providers Care Baller Tender Name Role Phone ASHLEY LONGO CP Unavailable [...] Instructions Start Date End Date Status Dosage [facility] [address]-73 5-325 MG Orally every 6 hrs. May 13, 2015 1 tablet as needed Results No Known Results Summary Purpose [employer] Submission
--- OUTSIDE RECORDS SUMMARY | 2016-06-21 22:34 | XMS REPORT ---
Author Author ASHLEY LONGO [facility] Address [address] [place] [address] Care Team Providers Care Take Away Attendant Name Role Phone DONTA ASHLEY Unavailable PROBLEMS Type Condition ICD9-CM Code UMD21-EY Code Onset Dates Condition Status SNOMED Code Problem Spasm of muscle 728.85 Active 84742809 Problem Acquired hypothyroidism E03.9 Active 153160727 Problem Other malaise and fatigue 780.79 Active 675043495 Problem Other and unspecified alcohol dependence, unspecified drunkenness 303.90 Active 603862712 Problem Unspecified gastritis and gastroduodenitis without mention of hemorrhage 535.50 Active 663802251 Problem Pain in joint, site unspecified 719.40 Active 17470260 Problem Cervicalgia 723.1 Active 52273806 ALLERGIES Unknown Allergies SOCIAL HISTORY No smoking Hx information available PLAN OF CARE VITAL SIGNS MEDICATIONS Medication Instructions Dosage Frequency Start Date End Date Duration Status [place] 5-325 MG Orally every 6 hrs. 1 tablet as needed Jan, Active RESULTS No Results PROCEDURES No Known procedures IMMUNIZATIONS No Known Immunizations
--- OUTSIDE RECORDS SUMMARY | 2016-06-21 22:34 | XMS REPORT ---
Author ASHLEY Ojeda Organization [employer] Address Unknown Phone Unavailable Care Team Providers Care Talent Acquisition Administrator Name Role Phone ASHLEY LONGO CP Unavailable [...]
--- OUTSIDE RECORDS SUMMARY | 2016-06-21 22:34 | XMS REPORT ---
Author ASHLEY Ojeda Organization [employer] Address Unknown Phone Unavailable Care Team Providers Care Security System Technician Name Role Phone ASHLEY LONGO CP [...]
--- OUTSIDE RECORDS SUMMARY | 2016-06-21 22:34 | XMS REPORT ---
Author ASHLEY Ojeda Organization [employer] Address Unknown Phone Unavailable Care Team Providers Care Revenue Accounting Manager Name Role Phone ASHLEY LONGO CP Unavailable Allergies No Known Allergies Problems Problem Type Condition Code Onset Dates Condition Status Assessment Knee pain, right M25.561 Active Problem Pain in joint, site unspecified 719.40 Active Problem Cervicalgia 723.1 Active Problem Other malaise and fatigue 780.79 Active Problem Spasm of muscle 728.85 Active Assessment Acquired hypothyroidism E03.9 Active Problem Other and unspecified alcohol dependence, unspecified drunkenness 303.90 Active Problem Unspecified gastritis and gastroduodenitis without mention of hemorrhage 535.50 Active Medications No Known Medications Procedures Procedure Coding System Code Date ASSAY THYROID STIM HORMONE CPT-4 48451 June 13, 2015 VENIPUNCT, ROUTINE* CPT-4 38147 June 13, 2015 ASSAY OF BLOOD/URIC ACID CPT-4 63571 June 13, 2015 Results Name Result Date Reference Range Unit Abnormality Flag URIC ACID, SERUM ----Uric Acid, Serum 10.6 20150613 3.7-8.6 mg/dL H TSH ----TSH 11.640 [id number] 0.450-4.500 uIU/mL H Summary Purpose [employer] Submission
--- OUTSIDE RECORDS SUMMARY | 2016-06-21 22:34 | XMS REPORT ---
Author ASHLEY Ojeda Organization [employer] Address Unknown Phone Unavailable Care Team Providers Care Paint Grinder [employer] Name Role Phone ASHLEY LONGO CP Unavailable Allergies, Adverse Reactions, Alerts Substance Reaction Event Type Bee stings anaphylaxis Non Drug Allergy Problems Problem Type Condition Code Onset Dates Condition Status Assessment Old complex tear of lateral meniscus of left knee M23.201 Active Problem Other malaise and fatigue 780.79 Active Problem Pain in joint, site unspecified 719.40 Active Problem Acquired hypothyroidism E03.9 Active Problem Unspecified gastritis and gastroduodenitis without mention of hemorrhage 535.50 Active Problem Spasm of muscle 728.85 Active Problem Cervicalgia 723.1 Active Problem Other and unspecified alcohol dependence, unspecified drunkenness 303.90 Active Medications Medication Code System Code Instructions Start Date End Date Status Dosage Xanax [facility] [address]-38 1 MG Orally Twice a day 1 tablet Levothyroxine Sodium [facility] [address]-94 88 MCG Orally Once a day Jan 02, 2015 1 tablet [employer] [facility] [address]-22 5-325 MG Orally every 6 hrs. Dec 31, 2015 1 tablet as needed Naproxen [facility] [address]-72 500 MG Orally 2 times a day May 13, 2015 1 tablet as needed Procedures Procedure Coding System Code Date Office Visit, Est Pt., Level 2 CPT-4 64218 Dec 31, 2015 DRAIN/INJECT, JOINT/BURSA CPT-4 07894 Dec 31, 2015 Vital Signs Date/Time: Dec 31, 2015 Cardiac Monitoring Heart Rate 76 bpm Weight 192.2 lbs Height 69 in BMI 28.38 Index Blood Pressure Diastolic 98 mmHg Blood Pressure Systolic 142 mmHg Results Name Result Date Reference Range Unit Abnormality Flag JOINT INJECTION-LARGE JOINT Summary Purpose [employer] Submission
--- OUTSIDE RECORDS SUMMARY | 2016-06-21 22:34 | XMS REPORT ---
Author ASHLEY Ojeda Organization [employer] Address Unknown Phone Unavailable Care Team Providers Care Marble Carver Name Role Phone ASHLEY LONGO CP Unavailable Allergies, Adverse Reactions, Alerts Substance Reaction Event Type Bee stings anaphylaxis Non Drug Allergy Problems Problem Type Condition Code Onset Dates Condition Status Assessment Hypothyroidism (acquired) E03.9 Active Assessment Acquired hypothyroidism E03.9 Active Assessment Pain in right knee M25.561 Active Problem Other malaise and fatigue [...] Instructions Start Date End Date Status Dosage [place] [facility] [address]-71 5-325 MG Orally every 6 hrs. May 13, 2015 1 tablet as needed Xanax [facility] [address]-43 1 MG Orally Twice a day 1 tablet Levothyroxine Sodium [facility] [address]-10 88 MCG Orally Once a day Jan 02, 2015 1 tablet Naproxen [facility] [address]-53 500 MG Orally 2 times a day May 13, 2015 1 tablet as needed Procedures Procedure Coding System Code Date ASSAY THYROID STIM HORMONE CPT-4 53591 Nov 28, 2015 VENIPUNCT, ROUTINE* CPT-4 90237 Nov 28, 2015 Office Visit, Est Pt., Level 3 CPT-4 14639 Nov 28, 2015 Vital Signs Date/Time: Nov 28, 2015 Cardiac Monitoring Heart Rate 96 bpm Weight 186.6 lbs Height 69 in BMI 27.55 Index Blood Pressure Diastolic 90 mmHg Blood Pressure Systolic 134 mmHg Results Name Result Date Reference Range Unit Abnormality Flag ROUTINE VENIPUNCTURE Summary Purpose [employer] Submission
== END 2016-05-21 20:08 ==
LOC: EDUNIT# 17:30 → ER 17:31
DX: K29.20 Alcoholic gastritis without bleeding (principal); F10.129 Alcohol abuse with intoxication, unspecified; Y90.8 Blood alcohol level of 240 mg/100 ml or more; F17.210 Nicotine dependence, cigarettes, uncomplicated; Z79.899 Other long term (current) drug therapy
CPT/HCPCS: 36415; 74177; 80053; 80306; 80320; 83690; 85025; 85610; 85730; 96374

== ENCOUNTER → 2016-06-29 | Outpatient (CLI) | payer OTHER ==
[~2016-06-29] MED LIST changes: +OMEP40CA36 PO; +SUCR1TAB36 PO
--- NOTE | 2016-06-29 17:28 | Diagnostic Imaging Report ---
PROCEDURE: MRI left joint lower extremity without contrast. TECHNIQUE: Multiplanar, multisequence non contrast-enhanced MRI of the left lower extremity was accomplished. INDICATION: Left knee pain. FINDINGS: There is a small suprapatellar effusion. There is a small amount of fluid in the popliteal fossa suggestive of a ruptured Kaba's cyst. There is no significant bone marrow edema or contusion. The extensor mechanism is intact. There is thickening in the ACL likely related to old injury with no full-thickness tear. The PCL is intact. The medial and lateral menisci demonstrate no significant tear. The popliteus tendon demonstrates increased signal and thickening suggestive of partial tear. There is also suggestion of sprain of the fibular collateral ligament with no full-thickness tear. The iliotibial band and biceps tendon insertion components of the lateral collateral ligament complex appear intact. The MCL appears intact. The articular cartilage is intact. IMPRESSION: 1. Edema and free fluid in the medial aspect of the popliteal fossa likely related to a ruptured Kaba's cyst. 2. Increased signal and thickening in the distal popliteus tendon suggestive of partial tear or tendinosis. 3. Fibular collateral ligament sprain. Dictated by: Dictated on workstation # [id number]
== END ==
LOC: RAD 15:28
PROVIDERS: ATTEND Internal Medicine
DX: M25.562 Pain in left knee (principal)
CPT/HCPCS: 73721

== ENCOUNTER 2016-11-30 08:50 | Emergency (ER) | payer OTHER ==
[~2016-11-30] VITALS: Ht 175.3 cm; Wt 81.6 kg
--- NOTE | 2016-11-30 09:21 | ED General ---
General Chief Complaint: Skin/Wound Problems Stated Complaint: POSS SPIDER BITES RIGHT ARM Nursing Triage Note: AMB TO ROOM CONCERN OVER AREA ON R FOREARM TO RED DOTS WITH REDNESS AROUND AREA. Nursing Sepsis Screen: No Definite Risk Source of Information: Patient Exam Limitations: No Limitations History of Present Illness Time Seen by Provider: 09:00 Initial Comments This 31-year-old young man presents to the emergency room with complaint of 2 lesions on the ventral aspect of his right forearm that were first noticed about 24 hours ago. He has erythema, pain, and itching of this area that has been expanding. The erythema expands to a diameter of about 4-6 cm. He is noted to be tachycardic and hypertensive as well. Patient is uncertain of what caused the lesions. He denies any ejection but does admit to smoking methamphetamines 2 days ago. He is afebrile. He has taken ibuprofen but no other medications. He has hypothyroidism that he admits is poorly regulated. He was supposed to have his thyroid labs checked about 2 months ago but did not follow up. He also ran out of his levothyroxine about 5 or 6 days ago. He reports that he takes his thyroid medication irregularly. Allergies and Home Medications Allergies Coded Allergies: No Known Drug Allergies (Unverified , 01/31/11) Home Medications Hydrocodone/Acetaminophen 1 Each Tablet, #75 (Reported) Levothyroxine Sodium 88 Mcg Tablet, #30 (Reported) Levothyroxine Sodium 50 Mcg Tablet, 50 MCG PO DAILY, #10 Prescribed by: JOSE ALEJANDRO HERNANDEZ on 11/30/16 1056 Lisdexamfetamine Dimesylate 40 Mg Capsule, #30 (Reported) Naproxen 500 Mg Tablet, #60 (Reported) Omeprazole 40 Mg Capsule.dr, 40 MG PO BID, #30 Ref 0 Prescribed by: DORA ROMERO on 05/21/161952 Sucralfate 1 Gm Tablet, 1 GM PO ACHS, #56 Ref 0 Prescribed by: DORA ROMERO on 05/21/161952 Sulfamethoxazole/Trimethoprim 1 Each Tablet, 1 EACH PO BID, #14 Prescribed by: JOSE ALEJANDRO HERNANDEZ on 02/24/16 0133 Sulfamethoxazole/Trimethoprim 1 Each Tablet, 1 EACH PO BID, #20 Prescribed by: JOSE ALEJANDRO HERNANDEZ on 10/16/17 1054 Constitutional: see HPI EENTM: no symptoms reported Respiratory: no symptoms reported Cardiovascular: see HPI Gastrointestinal: no symptoms reported Genitourinary: no symptoms reported Musculoskeletal: no symptoms reported Skin: see HPI Psychiatric/Neurological: No Symptoms Reported Hematologic/Lymphatic: No Symptoms Reported Past Qtxptoe-Vrqbwi-Cnypte Hx Patient Social History Alcohol Use: Occasionally Uses Number of Drinks Today: GG Alcohol Beverage of Choice: Beer, Whiskey Recreational Drug Use: Yes (ALCOHOL, methamphetamines) Drug of Choice: methamphetamines Smoking Status: Current Everyday Smoker Type Used: Cigarettes 2nd Hand Smoke Exposure: No Recent Foreign Travel: No Contact w/Someone Who Travel: No Recent Infectious Disease Expo: No Recent Hopitalizations: No Seasonal Allergies Seasonal Allergies: No Surgeries History of Surgeries: No Respiratory History of Respiratory Disorde: No Cardiovascular History of Cardiac Disorders: No Neurological History of Neurological Disord: No Reproductive System Hx Reproductive Disorders: No Genitourinary History of Genitourinary Disor: No Gastrointestinal History of Gastrointestinal Di: Yes (history of alcohol gastritis) Musculoskeletal History of Musculoskeletal Dis: Yes (chronic knee pain ) Endocrine History of Endocrine Disorders: Yes Endocrine Disorders: Hypothyroidsim HEENT History of HEENT Disorders: No Cancer History of Cancer: No Psychosocial History of Psychiatric Problem: Yes (alcohol and methamphetamine abuse) Behavioral Health Disorders: Anxiety Integumentary History of Skin or Integumenta: No Blood Transfusions History of Blood Disorders: No Family Medical History Significant Family History: No Pertinent Family Hx Physical Exam Vital Signs Vital Sign - Last 12Hours 11/30/16 08:55 Temp 98.5 Pulse 113 Resp 18 B/P (MAP) 146/102 O2 Delivery Room Air Capillary Refill : Less Than 3 Seconds General Appearance: No Apparent Distress, WD/WN HEENT: PERRL/EOMI, Normal ENT Inspection Respiratory: Lungs Clear, Normal Breath Sounds, No Accessory Muscle Use, No Respiratory Distress Cardiovascular: No Edema, No Murmur, Tachycardia Extremity: No Pedal Edema, Other (2 erythematous lesions on the ventral side of the right forearm with erythema extending 4-6 cm in diameter from the central lesions. No central puncture wound is evident. No obvious abscess or induration.) Neurologic/Psychiatric: Alert, Oriented x3, No Motor/Sensory Deficits, Normal Mood/Affect, research spec II-XII Norm as Tested, Other (occasional mouth smacking) Skin: Normal Color, Warm/Dry, Other (see above) Progress/Results/Core Measures Results/Orders Lab Results Laboratory Tests Test 11/30/16 09:25 Range/Units White Blood Count 11.9 H 4.3-11.0 10^3/uL Red Blood Count 5.15 4.35-5.85 10^6/uL Hemoglobin 16.2 13.3-17.7 G/DL Hematocrit 47 40-54 % Mean Corpuscular Volume 92 80-99 FL Mean Corpuscular Hemoglobin 32 25-34 PG Mean Corpuscular Hemoglobin Concent 34 32-36 G/DL Red Cell Distribution Width 13.1 10.0-14.5 % Platelet Count 296 130-400 10^3/uL Mean Platelet Volume 11.4 H 7.4-10.4 FL Neutrophils (%) (Auto) 70 42-75 % Lymphocytes (%) (Auto) 15 12-44 % Monocytes (%) (Auto) 12 0-12 % Eosinophils (%) (Auto) 3 0-10 % Basophils (%) (Auto) 1 0-10 % Neutrophils # (Auto) 8.3 H 1.8-7.8 X 10^3 Lymphocytes # (Auto) 1.8 1.0-4.0 X 10^3 Monocytes # (Auto) 1.4 H 0.0-1.0 X 10^3 Eosinophils # (Auto) 0.3 0.0-0.3 10^3/uL Basophils # (Auto) 0.1 0.0-0.1 10^3/uL Sodium Level 139 135-145 MMOL/L Potassium Level 3.9 3.6-5.0 MMOL/L Chloride Level 102 98-107 MMOL/L Carbon Dioxide Level 25 21-32 MMOL/L Anion Gap 12 5-14 MMOL/L Blood Urea Nitrogen 9 7-18 MG/DL Creatinine 1.07 0.60-1.30 MG/DL Estimat Glomerular Filtration Rate > 60 BUN/Creatinine Ratio 8 Glucose Level 108 H 70-105 MG/DL Calcium Level 10.3 H 8.5-10.1 MG/DL C-Reactive Protein High Sensitivity 1.52 H 0.00-0.50 MG/DL Thyroid Stimulating Hormone (TSH) 25.76 H 0.35-4.94 UIU/ML Free Thyroxine 0.66 L 0.70-1.48 NG/DL My Orders Orders - BRUEGGEMANN,JOSE ALEJANDRO T MD Basic Metabolic Panel (11/30/16 09:14) Cbc With Automated Diff (11/30/16 09:14) Hs C Reactive Protein (11/30/16 09:14) Thyroid Stimulating Hormone (11/30/16 09:14) Free T4 (Free Thyroxine) (11/30/16 09:14) Saline Lock/Iv-Start (11/30/16 09:14) Dipht,Pertuss(Acell),Tet Adult (Boostrix (11/30/16 10:45) Medications Given in ED Current Medications Medications Dose Ordered Sig/José Route Start Time Stop Time Status Last Admin Dose Admin Diphtheria/ Tetanus/Acell Pertussis 0.5 ml ONCE ONCE IM 11/30/16 10:45 11/30/16 10:46 DC 11/30/16 10:54 0.5 ML Vital Signs/I&O Vital Sign - Last 12Hours 11/30/16 08:55 Temp 98.5 Pulse 113 Resp 18 B/P (MAP) 146/102 O2 Delivery Room Air Blood Pressure Mean: 117 Progress Note : Progress Note Basic labs have been ordered. Disposition will be determined after labs are reviewed. Departure Impression Impression: Primary Impression: Right arm cellulitis Additional Impression: Hypothyroidism Disposition: 01 HOME, SELF-CARE Condition: Stable Departure-Patient Inst. Decision time for Depature: 10:30 Referrals: NO,LOCAL PHYSICIAN (PCP/Family) Primary Care Physician Patient Instructions: Cellulitis (Skin Infection), Adult (DC) Add. Discharge Instructions: Complete your antibiotics as prescribed. Return to care if symptoms worsen or if you develop new symptoms such as fever over 100F. Your symptoms may be caused by a spider bite and/or cellulitis (skin infection). You may take Tylenol and/or ibuprofen for pain. Start your thyroid medication as prescribed and follow-up with your primary care provider as soon as possible for further evaluation and treatment. Please call them today for an appointment. All discharge instructions reviewed with patient and/or family. Voiced understanding. Scripts Levothyroxine Sodium (Levothyroxine Sodium) 50 Mcg Tablet 50 MCG PO DAILY, #10 TAB Prov: JOSE ALEJANDRO PETERSEN MD 11/30/16 Sulfamethoxazole/Trimethoprim (Bactrim Ds Tablet) 1 Each Tablet 1 EACH PO BID, #20 TAB Prov: JOSE ALEJANDRO PETERSEN MD 11/30/16 JOSE ALEJANDRO PETERSEN MD Nov 30, 2016 09:21
[2016-11-30 09:32] LABS: BASOPHILS # (AUTO) 0.1 10^3/uL (0.0-0.1); BASOPHILS % (AUTO) 1 % (0-10); EOSINOPHILS # (AUTO) 0.3 10^3/uL (0.0-0.3); EOSINOPHILS % (AUTO) 3 % (0-10); LYMPHOCYTES # (AUTO) 1.8 X 10^3 (1.0-4.0); LYMPHOCYTES % (AUTO) 15 % (12-44); MEAN CORPUSCULAR HEMOGLOBIN 32 PG (25-34); MEAN CORPUSCULAR HGB CONC 34 G/DL (32-36); MEAN CORPUSCULAR VOLUME 92 FL (80-99); MEAN PLATELET VOLUME 11.4 FL (7.4-10.4); MONOCYTES # (AUTO) 1.4 X 10^3 (0.0-1.0); MONOCYTES % (AUTO) 12 % (0-12); NEUTROPHILS # (AUTO) 8.3 X 10^3 (1.8-7.8); NEUTROPHILS % (AUTO) 70 % (42-75); PLATELET COUNT 296 10^3/uL (130-400); RED BLOOD COUNT 5.15 10^6/uL (4.35-5.85); RED CELL DISTRIBUTION WIDTH 13.1 % (10.0-14.5); WHITE BLOOD COUNT 11.9 10^3/uL (4.3-11.0)
[2016-11-30 09:47] LABS: ANION GAP 12 MMOL/L (5-14); BLOOD UREA NITROGEN 9 MG/DL (7-18); BUN/CREATININE RATIO 8; CALCIUM 10.3 MG/DL (8.5-10.1); CARBON DIOXIDE 25 MMOL/L (21-32); CHLORIDE 102 MMOL/L (98-107); CREATININE SERUM 1.07 MG/DL (0.60-1.30); GFR ESTIMATED > 60; GLUCOSE 108 MG/DL (70-105); POTASSIUM 3.9 MMOL/L (3.6-5.0); SODIUM 139 MMOL/L (135-145); hs C REACTIVE PROTEIN 1.52 MG/DL (0.00-0.50)
[2016-11-30 10:11] LABS: THYROID STIMULATING HORMONE 25.76 UIU/ML (0.35-4.94)
[2016-11-30] MEDS ORDERED: TETANUS,DIPTH,PERTUSS P/F (BOOSTRIX) 0.5 ML VIAL IM ONE (10:45)
[2016-11-30] MEDS ORDERED: SULF1TAB35 PO (10:54)
[2016-11-30] MEDS ORDERED: LEVO50TA6 PO (10:56)
[2016-11-30 11:15] VITALS: BP 146/100
== END 2016-11-30 11:15 | disposition home or self-care (01) ==
LOC: EDUNIT# 08:50 → ER 08:52
DX: L03.113 Cellulitis of right upper limb (principal); E03.9 Hypothyroidism, unspecified; F41.9 Anxiety disorder, unspecified; F15.10 Other stimulant abuse, uncomplicated; F17.210 Nicotine dependence, cigarettes, uncomplicated; Z91.14 Patient's other noncompliance with medication regimen
CPT/HCPCS: 36415; 80048; 84439; 84443; 85025; 86141; 90715